=== PATIENT | female | born 1980 | race Caucasian/White ===

== ENCOUNTER 2016-11-22 10:07 | Emergency (ER) | payer SELFPAY ==
[~2016-11-22] VITALS: Ht 162.6 cm; Wt 85.3 kg
[2016-11-22 10:07] VITALS: BP 135/65
[~2016-11-22 10:07] MED LIST: PROAIR RESPICL90 MCG IH; VENTOLIN HFA18 GM INH
--- NOTE | 2016-11-22 10:28 | PHYS DOC ---
Past Medical History Past Medical History: Asthma, Hypertension Past Surgical History: , Other Additional Past Surgical Histo: tongue Alcohol Use: None Drug Use: Marijuana, Methamphetamine Adult General Chief Complaint Chief Complaint: ASTHMA HPI HPI Patient is a 36 year old female who presents with 2 days of worsening shortness of breath and cough. Patient states she started getting upper respiratory symptoms 2 days ago which she attributes to being around sick contacts at work. Patient states that her asthma symptoms started to become rapidly worse over the past 24 hours. Patient states that she has been taking albuterol inhaler at home with minimal relief in symptoms. The patient was administered 2 DuoNeb treatments by EMS prior to arrival which she stated offered mild improvement in symptoms. Patient denies any chest pain, fever, nausea, vomiting, or abdominal pain currently. Review of Systems Review of Systems Constitutional: Denies fever or chills [] Eyes: Denies change in visual acuity, redness, or eye pain [] HENT: Denies nasal congestion or sore throat [] Respiratory: Cough, shortness of breath [] Cardiovascular: Denies chest pain or edema [] GI: Denies abdominal pain, nausea, vomiting, bloody stools or diarrhea [] : Denies dysuria or hematuria [] Musculoskeletal: Denies back pain or joint pain [] Integument: Denies rash or skin lesions [] Neurologic: Denies headache, focal weakness or sensory changes [] Endocrine: Denies polyuria or polydipsia [] Current Medications Current Medications Current Medications Medications (Trade) Dose Ordered Sig/Hank Start Time Stop Time Status Last Admin Dose Admin Albuterol Sulfate (Ventolin Neb Soln) 5 mg 1X ONCE 11/22/16 10:30 11/22/16 10:31 DC 11/22/16 10:53 5 MG Dexamethasone Sodium Phosphate (Decadron) 12 mg 1X ONCE 11/22/16 10:30 11/22/16 10:31 DC 11/22/16 10:38 12 MG Allergies Allergies Allergies Coded Allergies Type Severity Reaction Last Updated Verified Penicillins Allergy Unknown 10/24/16 Yes Physical Exam Physical Exam Constitutional: Alert, afebrile, appears in mild to moderate respiratory distress. [] HENT: Normocephalic, atraumatic, bilateral external ears normal, oropharynx moist, no oral exudates, nose normal. [] Eyes: PERRLA, EOMI, conjunctiva normal, no discharge. [] Neck: Normal range of motion, no tenderness, supple, no stridor. [] Cardiovascular: Tachycardia, regular rhythm, no murmur [] Lungs & Thorax: Mild accessory muscle usage present, expiratory wheezes bilaterally, prolonged expiratory phase, no rales [] Abdomen: Bowel sounds normal, soft, no tenderness, no masses, no pulsatile masses. [] Skin: Warm, dry, no erythema, no rash. [] Back: No tenderness, no CVA tenderness. [] Extremities: No tenderness, no cyanosis, no clubbing, ROM intact, no edema. [] Neurologic: Alert and oriented X 3, normal motor function, normal sensory function, no focal deficits noted. [] Current Patient Data Vital Signs Vital Signs Date Time Temp Pulse Resp B/P Pulse Ox O2 Delivery O2 Flow Rate FiO2 11/22/16 10:58 94 Room Air 11/22/16 10:07 98.1 109 22 135/65 98.1 Lab Values Laboratory Tests Test 11/22/16 10:45 Influenza Type A Antigen Negative (NEGATIVE) Influenza Type B Antigen Negative (NEGATIVE) EKG EKG Rhythm strip interpreted by me: Heart rate 109, sinus tachycardia, no ectopy [] Radiology/Procedures Radiology/Procedures [facility] [address] [facility] [place], [place] [id number] IMAGING REPORT Signed PATIENT: MITZI BARRY ACCOUNT: [id number] : 1980 LOCATION: ER AGE: 36 SEX: F EXAM STATUS: PRE ER ORD. PHYSICIAN: SAÚL ZELAYA MD REASON: short of breath and cough for 2 days PROCEDURE: CHEST PA & LATERAL Two view chest History:Shortness of breath and cough for 2 days . PA and lateral views of the chest are submitted. Comparison: None Findings: There is no significant infiltrate, pleural effusion, or pneumothorax. The pericardial cardiac silhouette is within normal limits in size. The trachea is in the midline. No acute osseous abnormality is identified. Impression: There is no radiographic evidence of acute cardiopulmonary disease. DICTATED and SIGNED BY: YAAKOV HICKS MD DATE: 11/22/16 1043 CC: SAÚL ZELAYA MD; NON,STAFF ~ [] Course & Med Decision Making Course & Med Decision Making Pertinent Labs and Imaging studies reviewed. (See chart for details) The patient was given 2 additional nebulized treatments of albuterol and IV Decadron in the emergency department. On reevaluation, patient states she feels much better at this time. Patient's lungs have improved air movement and mild wheezing on re-auscultation. The patient appears improved at this time and is appropriate for outpatient treatment. The patient will continue on albuterol, prednisone, and Tessalon Perles for treatment of symptoms. Advise follow-up in 3 -5 days a primary doctor and return to the emergency department for any worsening symptoms. Patient voiced understanding and in agreement with treatment plan. Dragon Disclaimer Dragon Disclaimer This electronic medical record was generated, in whole or in part, using a voice recognition dictation system. Departure Departure Impression: Primary Impression: Asthma exacerbation Disposition: HOME, SELF-CARE Condition: IMPROVED Referrals: NON,STAFF (PCP) Patient Instructions: Asthma, Adult Additional Instructions: A primary doctor in 3-5 days for reevaluation. Return to the emergency department for any worsening symptoms. Scripts Prednisone 10 Mg [id number] Mg PO UD PREDNISONE TAPER #39 TAB Ref 0 Take 3 tablets by mouth twice a day for 3 days, then take 2 tablets by mouth twice a day for 3 days, then take 1 tablet by mouth twice a day for 3 days, then take 1 tablet by mouth daily x 3 days, then stop. Prov:SAÚL ZELAYA MD 11/22/16 Benzonatate (Tessalon Perle)100 Mg [id number] Mg PO TID PRN COUGH #30 CAP Prov:SAÚL ZELAYA MD 11/22/16 Albuterol Sulfate (Ventolin Hfa Inhaler)18 Gm Hfa.aer.ad2 Puff INH Q4HRS PRN WHEEZING #1 INHALER Ref 0 Prov:SAÚL ZELAYA MD 11/22/16 SAÚL ZELAYA MD Nov 22, 2016 10:28
[2016-11-22] MEDS ORDERED: DEXAMETHASONE SOD PHOS 20 MG/5 ML VIAL. IV ONE (10:30)
[2016-11-22] MEDS ORDERED: ALBUTEROL SULFATE 2.5 MG/3 ML NEBU. NEB ONE (10:30)
--- NOTE | 2016-11-22 10:46 | RAD ---
Two view chest History:Shortness of breath and cough for 2 days . PA and lateral views of the chest are submitted. Comparison: None Findings: There is no significant infiltrate, pleural effusion, or pneumothorax. The pericardial cardiac silhouette is within normal limits in size. The trachea is in the midline. No acute osseous abnormality is identified. Impression: There is no radiographic evidence of acute cardiopulmonary disease.
[2016-11-22 11:23] LABS: OBC FLU VALID
[2016-11-22] MEDS ORDERED: VENTOLIN HFA18 GM INH (11:37)
[2016-11-22] MEDS ORDERED: PRED-220 PO (11:37)
[2016-11-22] MEDS ORDERED: BENZ100C PO (11:37)
== END 2016-11-22 11:55 | disposition home or self-care (01) ==
LOC: ER 10:07
DX: J45.901 Unspecified asthma with (acute) exacerbation (principal); I10 Essential (primary) hypertension; F12.10 Cannabis abuse, uncomplicated; F15.10 Other stimulant abuse, uncomplicated; Z88.0 Allergy status to penicillin
CPT/HCPCS: 71020; 87804; 94640; 96374; 99285; J1100

== ENCOUNTER 2016-11-24 09:14 | Emergency (ER) | payer SELFPAY ==
[~2016-11-24 09:14] MED LIST changes: +BENZ100C PO; +PRED-220 PO
--- NOTE | 2016-11-24 09:49 | PHYS DOC ---
Past Medical History Past Medical History: Asthma, Hypertension Past Surgical History: , Other Additional Past Surgical Histo: tongue Alcohol Use: None Drug Use: Marijuana, Methamphetamine Adult General Chief Complaint Chief Complaint: SHORTNESS OF BREATH HPI HPI Patient is a 36 year old female who presents with complaint of shortness of breath. Patient symptoms started 4 days ago. Patient was seen in the emergency department 2 days ago and was treated for asthma exacerbation. Patient was prescribed Ventolin inhaler and prednisone. Patient states that she was unable to fill her prednisone due to no one taking her to the pharmacy to get it filled. Patient is currently at [facility] substance abuse treatment facility. Patient has only been taking Ventolin inhaler to help with symptoms as outpatient. Patient denies any fevers, nausea, vomiting. Patient has had worsening shortness of breath with exertion. Patient brought to the emergency department by EMS. Patient was given 1 DuoNeb treatment in route with mild improvement in symptoms. Review of Systems Review of Systems Constitutional: Denies fever or chills [] Eyes: Denies change in visual acuity, redness, or eye pain [] HENT: Denies nasal congestion or sore throat [] Respiratory: Shortness breath, wheezing [] Cardiovascular: Denies chest pain or edema [] GI: Denies abdominal pain, nausea, vomiting, bloody stools or diarrhea [] : Denies dysuria or hematuria [] Musculoskeletal: Denies back pain or joint pain [] Integument: Denies rash or skin lesions [] Neurologic: Denies headache, focal weakness or sensory changes [] Endocrine: Denies polyuria or polydipsia [] Current Medications Current Medications Current Medications Medications (Trade) Dose Ordered Sig/Hank Start Time Stop Time Status Last Admin Dose Admin Albuterol/ Ipratropium (Duoneb) 6 ml 1X ONCE 11/24/16 10:00 11/24/16 10:01 DC 11/24/16 10:08 6 ML Prednisone (Prednisone) 50 mg 1X ONCE 11/24/16 10:00 11/24/16 10:01 DC 11/24/16 10:32 50 MG Allergies Allergies Allergies Coded Allergies Type Severity Reaction Last Updated Verified Penicillins Allergy Unknown 10/24/16 Yes Physical Exam Physical Exam Constitutional: Alert, afebrile, appears in mild respiratory distress. [] HENT: Normocephalic, atraumatic, bilateral external ears normal, oropharynx moist, no oral exudates, nose normal. [] Eyes: PERRLA, EOMI, conjunctiva normal, no discharge. [] Neck: Normal range of motion, no tenderness, supple, no stridor. [] Cardiovascular: Tachycardia, regular rhythm, no murmur [] Lungs & Thorax: Mildly prolonged expiratory phase, expiratory wheezes bilaterally, no rales [] Abdomen: Bowel sounds normal, soft, no tenderness, no masses, no pulsatile masses. [] Skin: Warm, dry, no erythema, no rash. [] Back: No tenderness, no CVA tenderness. [] Extremities: No tenderness, no cyanosis, no clubbing, ROM intact, no edema. [] Neurologic: Alert and oriented X 3, normal motor function, normal sensory function, no focal deficits noted. [] Current Patient Data Vital Signs Vital Signs Date Time Temp Pulse Resp B/P Pulse Ox O2 Delivery O2 Flow Rate FiO2 11/24/16 10:12 93 Nasal Cannula 11/24/16 09:30 98.1 104 26 110/62 98.1 Lab Values Laboratory Tests Test 11/24/16 09:55 White Blood Count 12.5x10^3/uL (4.0-11.0) H Red Blood Count 4.67x10^6/uL (3.50-5.40) Hemoglobin 13.6g/dL (12.0-15.5) Hematocrit 41.1% (36.0-47.0) Mean Corpuscular Volume 88fL (79-100) Mean Corpuscular Hemoglobin 29pg (25-35) Mean Corpuscular Hemoglobin Concent 33g/dL (31-37) Red Cell Distribution Width 13.1% (11.5-14.5) Platelet Count 224x10^3/uL (140-400) Neutrophils (%) (Auto) 70% (31-73) Lymphocytes (%) (Auto) 18% (24-48) L Monocytes (%) (Auto) 8% (0-9) Eosinophils (%) (Auto) 3% (0-3) Basophils (%) (Auto) 1% (0-3) Neutrophils # (Auto) 8.7x10^3uL (1.8-7.7) H Lymphocytes # (Auto) 2.2x10^3/uL (1.0-4.8) Monocytes # (Auto) 1.1x10^3/uL (0.0-1.1) Eosinophils # (Auto) 0.4x10^3/uL (0.0-0.7) Basophils # (Auto) 0.1x10^3/uL (0.0-0.2) Sodium Level 144mmol/L (136-145) Potassium Level 3.6mmol/L (3.5-5.1) Chloride Level 107mmol/L (98-107) Carbon Dioxide Level 28mmol/L (21-32) Anion Gap 9 (6-14) Blood Urea Nitrogen 16mg/dL (7-20) Creatinine 0.7mg/dL (0.6-1.0) Estimated GFR (Cockcroft-Gault) 95.2 Glucose Level 109mg/dL (70-99) H Calcium Level 8.7mg/dL (8.5-10.1) Laboratory Tests 11/24/16 09:55 Laboratory Tests 11/24/16 09:55 EKG EKG Not performed [] Radiology/Procedures Radiology/Procedures [facility] [address] [place] [address] IMAGING REPORT Signed PATIENT: MITZI BARRY ACCOUNT: [id number] : 1980 LOCATION: ER AGE: 36 SEX: F EXAM STATUS: REG ER ORD. PHYSICIAN: SAÚL ZELAYA MD REASON: shortness of breath PROCEDURE: PORTABLE CHEST 1V INDICATION: shortness of breath COMPARISON: 11/24/2016 FINDINGS: Single view of chest obtained. No focal airspace consolidation. Mediastinal contour is unremarkable. No gross osseous destructive lesion. IMPRESSION: No focal airspace consolidation or edema. DICTATED and SIGNED BY: ARIANNA PEREA MD DATE: 11/24/16 1006 CC: SAÚL ZELAYA MD; NO PCP ~ [] Course & Med Decision Making Course & Med Decision Making Pertinent Labs and Imaging studies reviewed. (See chart for details) Patient was treated with 2 DuoNeb treatments in the emergency department as well as oral prednisone. Patient's symptoms have improved at this time. I consult that Volodymyr Gresham from [employer]. He came to the emergency department and was able to provide the patient with her prescriptions to be able to take at her treatment facility. Patient was discharged with recommendation to comply with medical treatment. Advised return to the emergency department for any worsening symptoms. Patient voiced understanding and agreement with treatment plan. Dragon Disclaimer Dragon Disclaimer This electronic medical record was generated, in whole or in part, using a voice recognition dictation system. Departure Departure Impression: Primary Impression: Asthma exacerbation Disposition: HOME, SELF-CARE Condition: IMPROVED Referrals: NO PCP (PCP) Patient Instructions: Asthma, Adult Additional Instructions: You will need to take the medications prescribed in order to improve your symptoms. Continue on your inhaler and prednisone medications as prescribed at your previous visit. I'll up with primary doctor in 3-4 days. Return to the emergency department for any worsening symptoms. SAÚL ZELAYA MD Nov 24, 2016 09:49
[2016-11-24] MEDS ORDERED: PREDNISONE 10 MG TABLET PO ONE (10:00)
[2016-11-24] MEDS ORDERED: IPRATRPIUM/ALBUTEROL 0.5/2.5MG 3 ML NEBU. NEB ONE (10:00)
--- NOTE | 2016-11-24 10:09 | RAD ---
INDICATION: shortness of breath COMPARISON: 11/24/2016 FINDINGS: Single view of chest obtained. No focal airspace consolidation. Mediastinal contour is unremarkable. No gross osseous destructive lesion. IMPRESSION: No focal airspace consolidation or edema.
[2016-11-24 10:10] LABS: BASO # 0.1 x10^3/uL (0.0-0.2); BASO % 1 % (0-3); EOS % 3 % (0-3); HEMATOCRIT 41.1 % (36.0-47.0); HEMOGLOBIN 13.6 g/dL (12.0-15.5); LYMPH # 2.2 x10^3/uL (1.0-4.8); LYMPH % 18 % (24-48); MEAN CORPUSCULAR HEMOGLOBIN 29 pg (25-35); MEAN CORPUSCULAR HGB CONC 33 g/dL (31-37); MEAN CORPUSCULAR VOLUME 88 fL (79-100); MONO % 8 % (0-9); NEUT % 70 % (31-73); PLATELET COUNT 224 x10^3/uL (140-400); RED BLOOD COUNT 4.67 x10^6/uL (3.50-5.40); RED CELL DISTRIBUTION WIDTH 13.1 % (11.5-14.5); WHITE BLOOD COUNT 12.5 x10^3/uL (4.0-11.0)
[2016-11-24 10:11] LABS: CALCIUM 8.7 mg/dL (8.5-10.1); CREATININE 0.7 mg/dL (0.6-1.0); GFR 95.2; POTASSIUM 3.6 mmol/L (3.5-5.1)
[2016-11-24 12:30] VITALS: BP 112/70
== END 2016-11-24 12:40 | disposition home or self-care (01) ==
LOC: ER 09:14
DX: J45.901 Unspecified asthma with (acute) exacerbation (principal); I10 Essential (primary) hypertension; F12.10 Cannabis abuse, uncomplicated; F15.10 Other stimulant abuse, uncomplicated; Z88.0 Allergy status to penicillin
CPT/HCPCS: 36415; 71010; 80048; 85027; 94250; 94640; 99285; J7512; J7620

== ENCOUNTER 2016-11-27 10:07 | Inpatient (IN) | payer SELFPAY ==
[~2016-11-27] VITALS: Ht 162.6 cm; Wt 90.7 kg
[2016-11-27] MEDS ORDERED: IPRATRPIUM/ALBUTEROL 0.5/2.5MG 3 ML NEBU. NEB ONE (10:45)
[2016-11-27 10:55] LABS: BASO # 0.1 x10^3/uL (0.0-0.2); BASO % 0 % (0-3); EOS % 0 % (0-3); HEMATOCRIT 42.5 % (36.0-47.0); HEMOGLOBIN 14.2 g/dL (12.0-15.5); LYMPH # 1.8 x10^3/uL (1.0-4.8); LYMPH % 9 % (24-48); MEAN CORPUSCULAR HEMOGLOBIN 29 pg (25-35); MEAN CORPUSCULAR HGB CONC 33 g/dL (31-37); MEAN CORPUSCULAR VOLUME 87 fL (79-100); MONO % 6 % (0-9); NEUT % 84 % (31-73); PLATELET COUNT 294 x10^3/uL (140-400); RED BLOOD COUNT 4.88 x10^6/uL (3.50-5.40); WHITE BLOOD COUNT 20.8 x10^3/uL (4.0-11.0)
--- NOTE | 2016-11-27 11:02 | RAD ---
Chest, 2 views, 11/27/2016: History: Shortness of breath, coughing up phlegm, chest pain The heart size and pulmonary vascularity are normal. No pulmonary infiltrates are seen. There is no evidence of pleural fluid. IMPRESSION: No acute cardiopulmonary abnormality is detected.
[2016-11-27 11:07] LABS: CALCIUM 9.5 mg/dL (8.5-10.1); CREATININE 0.7 mg/dL (0.6-1.0); GFR 95.2; POTASSIUM 4.6 mmol/L (3.5-5.1)
[2016-11-27 11:11] LABS: ALBUMIN 3.5 g/dL (3.4-5.0); ALBUMIN/GLOBULIN RATIO 0.9 (1.0-1.7); TOTAL BILIRUBIN 0.3 mg/dL (0.2-1.0); TOTAL PROTEIN 7.3 g/dL (6.4-8.2)
[2016-11-27 11:22] LABS: % EOS 1 % (0-5)
[2016-11-27 11:23] LABS: CKMB INDEX 0.8 % (0-4); CKMB MASS 0.7 ng/mL (0.0-3.6); PLT ESTIMATE ADEQUATE (ADEQUATE)
--- NOTE | 2016-11-27 11:25 | PHYS DOC ---
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 Her cough is occasionally productive. She also has sore throat and nasal congestion. She denies fever, chest pain, nausea, vomiting, diarrhea, or abdominal pain. Today is the patient' s third visit in 1 week for the same problem. She was here on 11/22/15 and . She was prescribed prednisone, Tessalon Perles, and albuterol inhaler. She last used her inhaler at 0900. Upon arrival to the emergency department, her oxygen saturation is 93-94% on room air. She is currently at the [facility] rehab for IV methamphetamine use. Review of Systems Review of Systems Constitutional: Denies fever or chills [] Eyes: Denies change in visual acuity, redness, or eye pain [] HENT: Reports sore throat and nasal congestion. Respiratory: Reports productive cough and shortness of breath. Cardiovascular: No additional information not addressed in HPI [] GI: Denies abdominal pain, nausea, vomiting, bloody stools or diarrhea [] : Denies dysuria or hematuria [] Musculoskeletal: Denies back pain or joint pain [] Integument: Denies rash or skin lesions [] Neurologic: Denies headache, focal weakness or sensory changes [] Endocrine: Denies polyuria or polydipsia [] Current Medications Current Medications Current Medications Medications (Trade) Dose Ordered Sig/Hank Start Time Stop Time Status Last Admin Dose Admin Albuterol/ Ipratropium (Duoneb) 3 ml 1X ONCE 11/27/16 10:45 11/27/16 10:46 DC 11/27/16 11:02 3 ML Allergies Allergies Physical Exam Physical Exam Constitutional: Well developed, well nourished, no acute distress, non-toxic appearance. [] HENT: Normocephalic, atraumatic, bilateral external ears normal, oropharynx moist, no oral exudates, nose normal. Bilateral TMs without erythema or bulging. There is no posterior pharyngeal erythema or tonsillar edema. Bilateral nasal turbinates are swollen and erythematous with purulent drainage. Eyes: PERRLA, EOMI, conjunctiva normal, no discharge. [] Neck: Normal range of motion, no tenderness, supple, no stridor. [] Cardiovascular: Heart rate regular rhythm, no murmur [] Lungs & Thorax: There are diffuse inspiratory and expiratory wheezes throughout all lung kelley. There are no rales or rhonchi. The patient is not in respiratory distress. Abdomen: Bowel sounds normal, soft, no tenderness, no masses, no pulsatile masses. [] Skin: Warm, dry, no erythema, no rash. [] Neurologic: Alert and oriented X 3, normal motor function, normal sensory function, no focal deficits noted. [] Psychologic: Affect normal, judgement normal, mood normal. [] Current Patient Data Vital Signs Vital Signs Date Time Temp Pulse Resp B/P Pulse Ox O2 Delivery O2 Flow Rate FiO2 11/27/16 11:36 90 19 110/55 91 Room Air 11/27/16 10:10 98.0 98.0 Lab Values Laboratory Tests Test 11/27/16 10:45 White Blood Count 20.8x10^3/uL (4.0-11.0) #H Red Blood Count 4.88x10^6/uL (3.50-5.40) Hemoglobin 14.2g/dL (12.0-15.5) Hematocrit 42.5% (36.0-47.0) Mean Corpuscular Volume 87fL (79-100) Mean Corpuscular Hemoglobin 29pg (25-35) Mean Corpuscular Hemoglobin Concent 33g/dL (31-37) Red Cell Distribution Width 13.0% (11.5-14.5) Platelet Count 294x10^3/uL (140-400) Neutrophils (%) (Auto) 84% (31-73) H Lymphocytes (%) (Auto) 9% (24-48) L Monocytes (%) (Auto) 6% (0-9) Eosinophils (%) (Auto) 0% (0-3) Basophils (%) (Auto) 0% (0-3) Neutrophils # (Auto) 17.6x10^3uL (1.8-7.7) H Lymphocytes # (Auto) 1.8x10^3/uL (1.0-4.8) Monocytes # (Auto) 1.3x10^3/uL (0.0-1.1) H Eosinophils # (Auto) 0.0x10^3/uL (0.0-0.7) Basophils # (Auto) 0.1x10^3/uL (0.0-0.2) Segmented Neutrophils % 75% (35-66) H Band Neutrophils % 6% (0-9) Lymphocytes % 13% (24-48) L Monocytes % 5% (0-10) Eosinophils % 1% (0-5) Platelet Estimate Adequate (ADEQUATE) Sodium Level 139mmol/L (136-145) Potassium Level 4.6mmol/L (3.5-5.1) Chloride Level 102mmol/L (98-107) Carbon Dioxide Level 30mmol/L (21-32) Anion Gap 7 (6-14) Blood Urea Nitrogen 14mg/dL (7-20) Creatinine 0.7mg/dL (0.6-1.0) Estimated GFR (Cockcroft-Gault) 95.2 BUN/Creatinine Ratio 20 (6-20) Glucose Level 111mg/dL (70-99) H Calcium Level 9.5mg/dL (8.5-10.1) Total Bilirubin 0.3mg/dL (0.2-1.0) Aspartate Amino Transferase (AST) 12U/L (15-37) L Alanine Aminotransferase (ALT) 21U/L (14-59) Alkaline Phosphatase 86U/L (46-116) Creatine Kinase 88U/L (26-192) Creatine Kinase MB (Mass) 0.7ng/mL (0.0-3.6) Creatine Kinase MB Relative Index 0.8% (0-4) Troponin I Quantitative < 0.017ng/mL (0.000-0.055) AJ-Dyb-V-Type Natriuretic Peptide 12pg/mL (0-124) Total Protein 7.3g/dL (6.4-8.2) Albumin 3.5g/dL (3.4-5.0) Albumin/Globulin Ratio 0.9 (1.0-1.7) L Laboratory Tests 11/27/16 10:45 Laboratory Tests 11/27/16 10:45 EKG EKG EKG at 1052. Heart rate 85 bpm. Normal sinus rhythm without any acute ischemic changes or STEMI, as interpreted by Dr. Smith. Radiology/Procedures Radiology/Procedures REASON: cough, soa PROCEDURE: CHEST PA & LATERAL Chest, 2 views, 11/27/2016: History: Shortness of breath, coughing up phlegm, chest pain The heart size and pulmonary vascularity are normal. No pulmonary infiltrates are seen. There is no evidence of pleural fluid. IMPRESSION: No acute cardiopulmonary abnormality is detected. Course & Med Decision Making Course & Med Decision Making Pertinent Labs and Imaging studies reviewed. (See chart for details) The patient is a 36-year-old female with history of asthma presents for her third visit within the last week for asthma exacerbation. She has been on prednisone, Tessalon Perles, and albuterol inhaler at home without improvement in her symptoms. Her oxygen saturation on room air is 93%. She has diffuse inspiratory and expiratory wheezes on exam without respiratory distress. Chest x -ray does not show any focal pneumonia. Laboratory evaluation reveals significant leukocytosis with white blood cell count of 20,000. Her white count was 12,000 three days ago. She is on steroids, confounding this value. She does not have a nebulizer or oxygen therapy at home. Her breathing improved only slightly after the nebulizer treatment in the emergency department. She is admitted to the hospital for asthma exacerbation, not improved with outpatient treatment. Admission was accepted for the hospitalist service by Dr. Obando. The patient is in agreement with plan for admission. She remained stable while in the emergency department. Dragon Disclaimer Dragon Disclaimer This electronic medical record was generated, in whole or in part, using a voice recognition dictation system. Departure Departure Impression: Primary Impression: Asthma exacerbation Disposition: ADMITTED INPATIENT Admitting Physician: Hermila Obando Condition: STABLE Referrals: NO PCP (PCP) DANIEL ESPINOZA Nov 27, 2016 11:25
[2016-11-27] MEDS ORDERED: methylPREDNISolone SOD SUCC PF 125 MG/2 ML VIAL. IV ONE (12:45)
--- NOTE | 2016-11-27 12:56 | EKG ---
[facility] [address] [place] [address] Test Date: 2016-11-27 Test Time: 10:52:06 Pat Name: MITZI BARRY Department: Room: Gender: F [employer]ach [employer] Tender: : 1980 Requested By: DANIEL ESPINOZA Order Number: [id number] Reading MD: Measurements Intervals [place] Rate: 85 P: 31 UT: 124 QRS: 66 QRSD: 72 T: 52 QT: 334 QTc: 398 Interpretive Statements SINUS RHYTHM NORMAL ECG RI6.01 No previous ECG available for comparison
[2016-11-27] MEDS: IPRATRPIUM/ALBUTEROL 0.5/2.5MG 3 ML NEBU. NEB SCH ×3 (14:59→20:39)
[2016-11-27 16:40] VITALS: BP 109/55
--- NOTE | 2016-11-27 16:43 | PDOC1 ---
History and Physical Date of Admission Date of Admission 11/27/16 Identification/Chief Complaint Chief Complaint sob Problems: Source Source: Chart review, Patient History of Present Illness History of Present Illness HPI HPI Patient is a 36 year old female with history of asthma comes for sob, cough FOR 1 week. 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 She takes only ventolin for asthma, usually 3-4 times a day. She has been coughing with yellow sputum, sob, came to ER a couple of times in the past week , was giving prednisone, not improving. smoker, <1PPD. Past Medical History Past Medical History asthma Past Surgical History Past Surgical History: Social History Smoke: <1 pack per day ALCOHOL: social Drugs: Marijuana, Crystal meth Current Problem List Problem List Problems Medical Problems: (1) Asthma exacerbation Status: Acute Current Medications Current Medications Current Medications Medications (Trade) Dose Ordered Sig/Hank Start Time Stop Time Status Last Admin Dose Admin Albuterol/ Ipratropium (Duoneb) 3 ml RTQID 11/27/16 13:00 11/28/16 12:59 11/27/16 14:59 3 ML Methylprednisolone Sodium Succinate (Solu-Medrol 125mg Vial) 125 mg 1X ONCE 11/27/16 12:45 11/27/16 13:10 DC 11/27/16 13:24 125 MG Allergies Allergies Allergies Coded Allergies Type Severity Reaction Last Updated Verified Penicillins Allergy Unknown 10/24/16 Yes ROS Review of System CONSTITUTIONAL: No fever or chills EYES: No recent changes SKIN: No rash or itching CARDIOVASCULAR: No chest pain, syncope, palpitations, or edema RESPIRATORY: No SOB or cough GASTROINTESTINAL: No nausea, vomiting or abdominal pain NEUROLOGICAL: No headaches or weakness ENDOCRINE: No cold or heat intolerance GENITOURINARY: No urgency or frequency of urination MUSCULOSKELETAL: No back pain or joint pain LYMPHATICS: No enlarged lymph nodes PSYCHIATRIC: No anxiety or depression Physical Exam Physical Exam GEN.: No apparent distress. Alert and oriented. HEENT: Head is normocephalic, atraumatic NECK: Supple. LUNGS: bl moderate wheezing HEART: RRR, S1, S2 present. Peripheral pulses intact ABDOMEN: Soft, nontender. Positive bowel sounds. EXTREMITIES: Without any cyanosis. NEUROLOGIC: Normal speech, normal tone PSYCHIATRIC: Normal affect, normal mood. SKIN: No ulcerations Vitals Vitals Vital Signs Date Time Temp Pulse Resp B/P Pulse Ox O2 Delivery O2 Flow Rate FiO2 11/27/16 16:01 98 109/55 96 Nasal Cannula 2 11/27/16 15:31 20 11/27/16 10:10 98.0 98.0 Labs Labs Laboratory Tests Test 11/27/16 10:45 White Blood Count 20.8x10^3/uL (4.0-11.0) Red Blood Count 4.88x10^6/uL (3.50-5.40) Hemoglobin 14.2g/dL (12.0-15.5) Hematocrit 42.5% (36.0-47.0) Mean Corpuscular Volume 87fL (79-100) Mean Corpuscular Hemoglobin 29pg (25-35) Mean Corpuscular Hemoglobin Concent 33g/dL (31-37) Red Cell Distribution Width 13.0% (11.5-14.5) Platelet Count 294x10^3/uL (140-400) Neutrophils (%) (Auto) 84% (31-73) Lymphocytes (%) (Auto) 9% (24-48) Monocytes (%) (Auto) 6% (0-9) Eosinophils (%) (Auto) 0% (0-3) Basophils (%) (Auto) 0% (0-3) Neutrophils # (Auto) 17.6x10^3uL (1.8-7.7) Lymphocytes # (Auto) 1.8x10^3/uL (1.0-4.8) Monocytes # (Auto) 1.3x10^3/uL (0.0-1.1) Eosinophils # (Auto) 0.0x10^3/uL (0.0-0.7) Basophils # (Auto) 0.1x10^3/uL (0.0-0.2) Segmented Neutrophils % 75% (35-66) Band Neutrophils % 6% (0-9) Lymphocytes % 13% (24-48) Monocytes % 5% (0-10) Eosinophils % 1% (0-5) Platelet Estimate Adequate (ADEQUATE) Sodium Level 139mmol/L (136-145) Potassium Level 4.6mmol/L (3.5-5.1) Chloride Level 102mmol/L (98-107) Carbon Dioxide Level 30mmol/L (21-32) Anion Gap 7 (6-14) Blood Urea Nitrogen 14mg/dL (7-20) Creatinine 0.7mg/dL (0.6-1.0) Estimated GFR (Cockcroft-Gault) 95.2 BUN/Creatinine Ratio 20 (6-20) Glucose Level 111mg/dL (70-99) Calcium Level 9.5mg/dL (8.5-10.1) Total Bilirubin 0.3mg/dL (0.2-1.0) Aspartate Amino Transf (AST/SGOT) 12U/L (15-37) Alanine Aminotransferase (ALT/SGPT) 21U/L (14-59) Alkaline Phosphatase 86U/L (46-116) Creatine Kinase 88U/L (26-192) Creatine Kinase MB (Mass) 0.7ng/mL (0.0-3.6) Creatine Kinase MB Relative Index 0.8% (0-4) Troponin I Quantitative < 0.017ng/mL (0.000-0.055) WZ-Zph-S-Type Natriuretic Peptide 12pg/mL (0-124) Total Protein 7.3g/dL (6.4-8.2) Albumin 3.5g/dL (3.4-5.0) Albumin/Globulin Ratio 0.9 (1.0-1.7) Laboratory Tests Test 11/27/16 10:45 White Blood Count 20.8x10^3/uL (4.0-11.0) Red Blood Count 4.88x10^6/uL (3.50-5.40) Hemoglobin 14.2g/dL (12.0-15.5) Hematocrit 42.5% (36.0-47.0) Mean Corpuscular Volume 87fL (79-100) Mean Corpuscular Hemoglobin 29pg (25-35) Mean Corpuscular Hemoglobin Concent 33g/dL (31-37) Red Cell Distribution Width 13.0% (11.5-14.5) Platelet Count 294x10^3/uL (140-400) Neutrophils (%) (Auto) 84% (31-73) Lymphocytes (%) (Auto) 9% (24-48) Monocytes (%) (Auto) 6% (0-9) Eosinophils (%) (Auto) 0% (0-3) Basophils (%) (Auto) 0% (0-3) Neutrophils # (Auto) 17.6x10^3uL (1.8-7.7) Lymphocytes # (Auto) 1.8x10^3/uL (1.0-4.8) Monocytes # (Auto) 1.3x10^3/uL (0.0-1.1) Eosinophils # (Auto) 0.0x10^3/uL (0.0-0.7) Basophils # (Auto) 0.1x10^3/uL (0.0-0.2) Segmented Neutrophils % 75% (35-66) Band Neutrophils % 6% (0-9) Lymphocytes % 13% (24-48) Monocytes % 5% (0-10) Eosinophils % 1% (0-5) Platelet Estimate Adequate (ADEQUATE) Sodium Level 139mmol/L (136-145) Potassium Level 4.6mmol/L (3.5-5.1) Chloride Level 102mmol/L (98-107) Carbon Dioxide Level 30mmol/L (21-32) Anion Gap 7 (6-14) Blood Urea Nitrogen 14mg/dL (7-20) Creatinine 0.7mg/dL (0.6-1.0) Estimated GFR (Cockcroft-Gault) 95.2 BUN/Creatinine Ratio 20 (6-20) Glucose Level 111mg/dL (70-99) Calcium Level 9.5mg/dL (8.5-10.1) Total Bilirubin 0.3mg/dL (0.2-1.0) Aspartate Amino Transf (AST/SGOT) 12U/L (15-37) Alanine Aminotransferase (ALT/SGPT) 21U/L (14-59) Alkaline Phosphatase 86U/L (46-116) Creatine Kinase 88U/L (26-192) Creatine Kinase MB (Mass) 0.7ng/mL (0.0-3.6) Creatine Kinase MB Relative Index 0.8% (0-4) Troponin I Quantitative < 0.017ng/mL (0.000-0.055) BO-Foq-Q-Type Natriuretic Peptide 12pg/mL (0-124) Total Protein 7.3g/dL (6.4-8.2) Albumin 3.5g/dL (3.4-5.0) Albumin/Globulin Ratio 0.9 (1.0-1.7) VTE Prophylaxis Ordered VTE Prophylaxis Devices: Yes VTE Pharmacological Prophylaxi: Yes Assessment/Plan Assessment/Plan 1. dyspnea, 2/2 asthma exacerbation 2. likely COPD with bronchitis 3. tobaccoism 4. htn 5.drug abuse with marijuana and meth 6. obesity plan: 1. pulm consult 2. solumedrol, duoneb 3. levaquin 4. dvt, gi ppx GABRIELLE ROJAS MD Nov 27, 2016 16:42
[2016-11-27] MEDS ORDERED: ACETAMINOPHEN 325 MG TABLET. PO PRN (16:45)
[2016-11-27] MEDS ORDERED: ALBUTEROL SULFATE 2.5 MG/3 ML NEBU. NEB PRN (16:45)
[2016-11-27] MEDS ORDERED: ONDANSETRON PF 4 MG/2 ML VIAL. IV PRN (16:45)
[2016-11-27] MEDS: ENOXAPARIN 40 MG/0.4 ML DISP.SYRIN. SQ SCH (17:39)
[2016-11-27 19:00] VITALS: BP 121/60
[2016-11-27] MEDS: FAMOTIDINE 20 MG TABLET. PO SCH (20:47)
[2016-11-27] MEDS: BENZONATATE 100 MG CAPSULE. PO PRN (20:47)
[2016-11-27] MEDS: GUAIFENESIN ER 600 MG TABLET.ER PO SCH (20:47)
[2016-11-27] MEDS: methylPREDNISolone SOD SUCC PF 40 MG/ML VIAL. IV SCH (22:56)
[2016-11-27 23:53] VITALS: BP 112/56
[2016-11-28 03:01] VITALS: BP 112/69
[2016-11-28 06:15] LABS: BASO % 0 % (0-3); EOS % 0 % (0-3); HEMATOCRIT 42.6 % (36.0-47.0); HEMOGLOBIN 14.1 g/dL (12.0-15.5); LYMPH # 1.6 x10^3/uL (1.0-4.8); LYMPH % 8 % (24-48); MEAN CORPUSCULAR HEMOGLOBIN 29 pg (25-35); MEAN CORPUSCULAR HGB CONC 33 g/dL (31-37); MEAN CORPUSCULAR VOLUME 89 fL (79-100); MONO % 4 % (0-9); NEUT % 88 % (31-73); PLATELET COUNT 281 x10^3/uL (140-400); RED BLOOD COUNT 4.79 x10^6/uL (3.50-5.40); RED CELL DISTRIBUTION WIDTH 13.2 % (11.5-14.5)
[2016-11-28 06:22] LABS: CALCIUM 9.3 mg/dL (8.5-10.1); CREATININE 0.8 mg/dL (0.6-1.0); GFR 81.6; POTASSIUM 4.6 mmol/L (3.5-5.1)
[2016-11-28] MEDS: methylPREDNISolone SOD SUCC PF 40 MG/ML VIAL. IV SCH ×3 (06:23→20:23)
[2016-11-28] MEDS: IPRATRPIUM/ALBUTEROL 0.5/2.5MG 3 ML NEBU. NEB SCH ×4 (06:56→20:08)
[2016-11-28 07:00] VITALS: BP 116/74
[2016-11-28] MEDS: GUAIFENESIN ER 600 MG TABLET.ER PO SCH ×2 (09:13→20:17)
[2016-11-28 11:00] VITALS: BP 117/72
--- NOTE | 2016-11-28 11:21 | PDOC ---
PROGRESS NOTES Chief Complaint Chief Complaint 1. dyspnea, 2/2 asthma exacerbation 2. likely COPD with bronchitis 3. tobaccoism 4. htn 5.drug abuse with marijuana and meth 6. obesity History of Present Illness History of Present Illness Still wheezy but better Less coughing CXR no PNA PLAN: CPM Would keep 1 more night, if cont to do better then home poornima dw pt Vitals Vitals Vital Signs Date Time Temp Pulse Resp B/P Pulse Ox O2 Delivery O2 Flow Rate FiO2 11/28/16 10:43 Nasal Cannula 2.0 11/28/16 07:00 97.7 92 18 116/74 91 97.7 Physical Exam General: Alert, Oriented X3, Cooperative Heart: Regular rate, Normal S1, Normal S2 Lungs: Wheezing Abdomen: Normal bowel sounds, Soft Extremities: No clubbing, No cyanosis Skin: No rashes, No breakdown Labs LABS Laboratory Tests Test 11/28/16 05:55 White Blood Count 19.0x10^3/uL (4.0-11.0) Red Blood Count 4.79x10^6/uL (3.50-5.40) Hemoglobin 14.1g/dL (12.0-15.5) Hematocrit 42.6% (36.0-47.0) Mean Corpuscular Volume 89fL (79-100) Mean Corpuscular Hemoglobin 29pg (25-35) Mean Corpuscular Hemoglobin Concent 33g/dL (31-37) Red Cell Distribution Width 13.2% (11.5-14.5) Platelet Count 281x10^3/uL (140-400) Neutrophils (%) (Auto) 88% (31-73) Lymphocytes (%) (Auto) 8% (24-48) Monocytes (%) (Auto) 4% (0-9) Eosinophils (%) (Auto) 0% (0-3) Basophils (%) (Auto) 0% (0-3) Neutrophils # (Auto) 16.7x10^3uL (1.8-7.7) Lymphocytes # (Auto) 1.6x10^3/uL (1.0-4.8) Monocytes # (Auto) 0.7x10^3/uL (0.0-1.1) Eosinophils # (Auto) 0.0x10^3/uL (0.0-0.7) Basophils # (Auto) 0.0x10^3/uL (0.0-0.2) Sodium Level 140mmol/L (136-145) Potassium Level 4.6mmol/L (3.5-5.1) Chloride Level 103mmol/L (98-107) Carbon Dioxide Level 28mmol/L (21-32) Anion Gap 9 (6-14) Blood Urea Nitrogen 15mg/dL (7-20) Creatinine 0.8mg/dL (0.6-1.0) Estimated GFR (Cockcroft-Gault) 81.6 Glucose Level 129mg/dL (70-99) Calcium Level 9.3mg/dL (8.5-10.1) Review of Systems Review of Systems no inc in soa, no cp, no abd pain, diarrhea Assessment and Plan Assessmemt and Plan Problems Medical Problems: (1) Asthma exacerbation Status: Acute Problems: Comment Review of Relevant I have reviewed the following items ana (where applicable) has been applied. Labs Laboratory Tests Test 11/27/16 10:45 11/28/16 05:55 White Blood Count 20.8x10^3/uL (4.0-11.0) 19.0x10^3/uL (4.0-11.0) Red Blood Count 4.88x10^6/uL (3.50-5.40) 4.79x10^6/uL (3.50-5.40) Hemoglobin 14.2g/dL (12.0-15.5) 14.1g/dL (12.0-15.5) Hematocrit 42.5% (36.0-47.0) 42.6% (36.0-47.0) Mean Corpuscular Volume 87fL (79-100) 89fL (79-100) Mean Corpuscular Hemoglobin 29pg (25-35) 29pg (25-35) Mean Corpuscular Hemoglobin Concent 33g/dL (31-37) 33g/dL (31-37) Red Cell Distribution Width 13.0% (11.5-14.5) 13.2% (11.5-14.5) Platelet Count 294x10^3/uL (140-400) 281x10^3/uL (140-400) Neutrophils (%) (Auto) 84% (31-73) 88% (31-73) Lymphocytes (%) (Auto) 9% (24-48) 8% (24-48) Monocytes (%) (Auto) 6% (0-9) 4% (0-9) Eosinophils (%) (Auto) 0% (0-3) 0% (0-3) Basophils (%) (Auto) 0% (0-3) 0% (0-3) Neutrophils # (Auto) 17.6x10^3uL (1.8-7.7) 16.7x10^3uL (1.8-7.7) Lymphocytes # (Auto) 1.8x10^3/uL (1.0-4.8) 1.6x10^3/uL (1.0-4.8) Monocytes # (Auto) 1.3x10^3/uL (0.0-1.1) 0.7x10^3/uL (0.0-1.1) Eosinophils # (Auto) 0.0x10^3/uL (0.0-0.7) 0.0x10^3/uL (0.0-0.7) Basophils # (Auto) 0.1x10^3/uL (0.0-0.2) 0.0x10^3/uL (0.0-0.2) Segmented Neutrophils % 75% (35-66) Band Neutrophils % 6% (0-9) Lymphocytes % 13% (24-48) Monocytes % 5% (0-10) Eosinophils % 1% (0-5) Platelet Estimate Adequate (ADEQUATE) Sodium Level 139mmol/L (136-145) 140mmol/L (136-145) Potassium Level 4.6mmol/L (3.5-5.1) 4.6mmol/L (3.5-5.1) Chloride Level 102mmol/L (98-107) 103mmol/L (98-107) Carbon Dioxide Level 30mmol/L (21-32) 28mmol/L (21-32) Anion Gap 7 (6-14) 9 (6-14) Blood Urea Nitrogen 14mg/dL (7-20) 15mg/dL (7-20) Creatinine 0.7mg/dL (0.6-1.0) 0.8mg/dL (0.6-1.0) Estimated GFR (Cockcroft-Gault) 95.2 81.6 BUN/Creatinine Ratio 20 (6-20) Glucose Level 111mg/dL (70-99) 129mg/dL (70-99) Calcium Level 9.5mg/dL (8.5-10.1) 9.3mg/dL (8.5-10.1) Total Bilirubin 0.3mg/dL (0.2-1.0) Aspartate Amino Transf (AST/SGOT) 12U/L (15-37) Alanine Aminotransferase (ALT/SGPT) 21U/L (14-59) Alkaline Phosphatase 86U/L (46-116) Creatine Kinase 88U/L (26-192) Creatine Kinase MB (Mass) 0.7ng/mL (0.0-3.6) Creatine Kinase MB Relative Index 0.8% (0-4) Troponin I Quantitative < 0.017ng/mL (0.000-0.055) AE-Iqs-T-Type Natriuretic Peptide 12pg/mL (0-124) Total Protein 7.3g/dL (6.4-8.2) Albumin 3.5g/dL (3.4-5.0) Albumin/Globulin Ratio 0.9 (1.0-1.7) Laboratory Tests Test 11/28/16 05:55 White Blood Count 19.0x10^3/uL (4.0-11.0) Red Blood Count 4.79x10^6/uL (3.50-5.40) Hemoglobin 14.1g/dL (12.0-15.5) Hematocrit 42.6% (36.0-47.0) Mean Corpuscular Volume 89fL (79-100) Mean Corpuscular Hemoglobin 29pg (25-35) Mean Corpuscular Hemoglobin Concent 33g/dL (31-37) Red Cell Distribution Width 13.2% (11.5-14.5) Platelet Count 281x10^3/uL (140-400) Neutrophils (%) (Auto) 88% (31-73) Lymphocytes (%) (Auto) 8% (24-48) Monocytes (%) (Auto) 4% (0-9) Eosinophils (%) (Auto) 0% (0-3) Basophils (%) (Auto) 0% (0-3) Neutrophils # (Auto) 16.7x10^3uL (1.8-7.7) Lymphocytes # (Auto) 1.6x10^3/uL (1.0-4.8) Monocytes # (Auto) 0.7x10^3/uL (0.0-1.1) Eosinophils # (Auto) 0.0x10^3/uL (0.0-0.7) Basophils # (Auto) 0.0x10^3/uL (0.0-0.2) Sodium Level 140mmol/L (136-145) Potassium Level 4.6mmol/L (3.5-5.1) Chloride Level 103mmol/L (98-107) Carbon Dioxide Level 28mmol/L (21-32) Anion Gap 9 (6-14) Blood Urea Nitrogen 15mg/dL (7-20) Creatinine 0.8mg/dL (0.6-1.0) Estimated GFR (Cockcroft-Gault) 81.6 Glucose Level 129mg/dL (70-99) Calcium Level 9.3mg/dL (8.5-10.1) Medications Current Medications Albuterol/ Ipratropium (Duoneb) 3 ml 1X ONCE NEB Last administered on 11:02; Start 11/27/16 at 10:45; Stop 11/27/16 at 10:46; Status DC Albuterol/ Ipratropium (Duoneb) 3 ml RTQID NEB Last administered on 11/27/16 14:59; Start 11/27/16 at 13:00; Stop 11/27/16 at 16:49; Status DC Methylprednisolone Sodium Succinate (Solu-Medrol 125mg Vial) 125 mg 1X ONCE IV Last administered on 11/27/16 13:24; Start 11/27/16 at 12:45; Stop 11/27/16 at 13:10; Status DC Benzonatate (Tessalon Perle) 100 mg TID PRN PO COUGH Last administered on 20:47; Start 11/27/16 at 16:45 Methylprednisolone Sodium Succinate (Solu-Medrol 40mg Vial) 60 mg Q8HRS IV Last administered on 11/28/16 06:23; Start 11/27/16 at 22:00 Famotidine (Pepcid) 20 mg QHS PO Last administered on 11/27/16 20:47; Start at 21:00 Albuterol/ Ipratropium (Duoneb) 3 ml RTQID NEB Last administered on 11/28/16 10:42; Start 11/27/16 at 20:00 Albuterol Sulfate 2.5 mg 2.5 mg PRN Q4HRS PRN NEB SHORTNESS OF BREATH; Start at 16:45 Levofloxacin/ Dextrose 150 ml @ 100 mls/hr Q24H IV ; Start 11/27/16 at 16:45; Stop 11/27/16 at 16:47; Status DC Levofloxacin/ Dextrose (LEVAQUIN 500mg PREMIX) 100 ml @ 100 mls/hr Q24H IV Last administered on 11/27/16 17:38; Start 11/27/16 at 17:00 Acetaminophen (Tylenol) 650 mg PRN Q6HRS PRN PO MILD PAIN / TEMP Last administered on 11/28/16 09:14; Start 11/27/16 at 16:45 Ondansetron HCl (Zofran) 4 mg PRN Q6HRS PRN IV NAUSEA/VOMITING; Start 11/27/16 at 16:45 Enoxaparin Sodium (Lovenox 40mg Syringe) 40 mg Q24H SQ Last administered on 17:39; Start 11/27/16 at 17:00 Guaifenesin (Mucinex) 600 mg BID PO Last administered on 11/28/16 09:13; Start 11/27/16 at 21:00 Active Scripts Active Prednisone 10 Mg Tablet 10 Mg PO UD Take 3 tablets by mouth twice a day for 3 days, then take 2 tablets by mouth twice a day for 3 days, then take 1 tablet by mouth twice a day for 3 days, then take 1 tablet by mouth daily x 3 days, then stop. Tessalon Perle (Benzonatate) 100 Mg Capsule 100 Mg PO TID PRN Ventolin Hfa Inhaler (Albuterol Sulfate) 18 Gm Hfa.aer.ad 2 Puff INH Q4HRS PRN Ventolin Hfa Inhaler (Albuterol Sulfate) 18 Gm Hfa.aer.ad 2 Puff INH Q4HRS Proair Respiclick (Albuterol Sulfate) 90 Mcg Aer.pow.ba 1 Puff IH PRN Q6HRS PRN Vitals/I & O Vital Sign - Last 24 Hours 11/27/16 11/27/16 11/27/16 11/27/16 11:36 12:01 12:31 13:01 Pulse 90 88 86 84 Resp 19 20 29 B/P 110/55 106/72 100/60 116/68 Pulse Ox 91 93 92 93 O2 Delivery Room Air Nasal Cannula Nasal Cannula Nasal Cannula O2 Flow Rate 2 2 2 11/27/16 11/27/1617 11/27/16 14:01 15:00 15:01 15:31 Pulse 82 78 90 Resp 26 20 20 B/P 120/68 103/56 116/73 Pulse Ox 94 94 92 O2 Delivery Nasal Cannula Nasal Cannula Nasal Cannula Nasal Cannula O2 Flow Rate 2 2.0 2 2 11/27/16 11/27/16 11/27/16 11/27/16 16:01 16:40 16:40 19:00 Temp 98.0 98.6 98.0 98.6 Pulse 98 98 95 Resp 20 18 B/P 109/55 109/55 121/60 Pulse Ox 96 92 O2 Delivery Nasal Cannula Nasal Cannula Nasal Cannula Nasal Cannula O2 Flow Rate 2 2.0 2.0 1.0 11/27/16 11/27/16 11/27/16 11/28/16 20:00 20:41 23:53 03:01 Temp 97.9 98.6 97.9 98.6 Pulse 90 92 Resp 20 20 B/P 112/56 112/69 Pulse Ox 90 92 92 O2 Delivery Nasal Cannula Nasal Cannula Nasal Cannula Room Air O2 Flow Rate 2.0 2.0 2.0 11/28/16 11/28/16 11/28/16 11/28/16 06:57 07:00 08:05 10:43 Temp 97.7 97.7 Pulse 92 Resp 18 B/P 116/74 Pulse Ox 94 91 O2 Delivery Nasal Cannula Nasal Cannula Nasal Cannula Nasal Cannula O2 Flow Rate 2.0 2.0 2.0 2.0 Intake and Output 11/27/16 11/27/16 11/28/16 15:00 23:00 07:00 Intake Total 520 ml Balance 520 ml TERMULO,JULIUS Y MD Nov 28, 2016 11:20
--- NOTE | 2016-11-28 13:32 | PDOC ---
PULMONARY PROGRESS NOTES Vitals Vital Signs Date Time Temp Pulse Resp B/P Pulse Ox O2 Delivery O2 Flow Rate FiO2 11/28/16 11:00 97.7 90 18 117/72 92 Nasal Cannula 2.0 97.7 Lungs: Wheezing Labs Laboratory Tests Test 11/27/16 10:45 11/28/16 05:55 White Blood Count 20.8x10^3/uL (4.0-11.0) 19.0x10^3/uL (4.0-11.0) Red Blood Count 4.88x10^6/uL (3.50-5.40) 4.79x10^6/uL (3.50-5.40) Hemoglobin 14.2g/dL (12.0-15.5) 14.1g/dL (12.0-15.5) Hematocrit 42.5% (36.0-47.0) 42.6% (36.0-47.0) Mean Corpuscular Volume 87fL (79-100) 89fL (79-100) Mean Corpuscular Hemoglobin 29pg (25-35) 29pg (25-35) Mean Corpuscular Hemoglobin Concent 33g/dL (31-37) 33g/dL (31-37) Red Cell Distribution Width 13.0% (11.5-14.5) 13.2% (11.5-14.5) Platelet Count 294x10^3/uL (140-400) 281x10^3/uL (140-400) Neutrophils (%) (Auto) 84% (31-73) 88% (31-73) Lymphocytes (%) (Auto) 9% (24-48) 8% (24-48) Monocytes (%) (Auto) 6% (0-9) 4% (0-9) Eosinophils (%) (Auto) 0% (0-3) 0% (0-3) Basophils (%) (Auto) 0% (0-3) 0% (0-3) Neutrophils # (Auto) 17.6x10^3uL (1.8-7.7) 16.7x10^3uL (1.8-7.7) Lymphocytes # (Auto) 1.8x10^3/uL (1.0-4.8) 1.6x10^3/uL (1.0-4.8) Monocytes # (Auto) 1.3x10^3/uL (0.0-1.1) 0.7x10^3/uL (0.0-1.1) Eosinophils # (Auto) 0.0x10^3/uL (0.0-0.7) 0.0x10^3/uL (0.0-0.7) Basophils # (Auto) 0.1x10^3/uL (0.0-0.2) 0.0x10^3/uL (0.0-0.2) Segmented Neutrophils % 75% (35-66) Band Neutrophils % 6% (0-9) Lymphocytes % 13% (24-48) Monocytes % 5% (0-10) Eosinophils % 1% (0-5) Platelet Estimate Adequate (ADEQUATE) Sodium Level 139mmol/L (136-145) 140mmol/L (136-145) Potassium Level 4.6mmol/L (3.5-5.1) 4.6mmol/L (3.5-5.1) Chloride Level 102mmol/L (98-107) 103mmol/L (98-107) Carbon Dioxide Level 30mmol/L (21-32) 28mmol/L (21-32) Anion Gap 7 (6-14) 9 (6-14) Blood Urea Nitrogen 14mg/dL (7-20) 15mg/dL (7-20) Creatinine 0.7mg/dL (0.6-1.0) 0.8mg/dL (0.6-1.0) Estimated GFR (Cockcroft-Gault) 95.2 81.6 BUN/Creatinine Ratio 20 (6-20) Glucose Level 111mg/dL (70-99) 129mg/dL (70-99) Calcium Level 9.5mg/dL (8.5-10.1) 9.3mg/dL (8.5-10.1) Total Bilirubin 0.3mg/dL (0.2-1.0) Aspartate Amino Transf (AST/SGOT) 12U/L (15-37) Alanine Aminotransferase (ALT/SGPT) 21U/L (14-59) Alkaline Phosphatase 86U/L (46-116) Creatine Kinase 88U/L (26-192) Creatine Kinase MB (Mass) 0.7ng/mL (0.0-3.6) Creatine Kinase MB Relative Index 0.8% (0-4) Troponin I Quantitative < 0.017ng/mL (0.000-0.055) QG-Ccf-Q-Type Natriuretic Peptide 12pg/mL (0-124) Total Protein 7.3g/dL (6.4-8.2) Albumin 3.5g/dL (3.4-5.0) Albumin/Globulin Ratio 0.9 (1.0-1.7) Laboratory Tests Test 11/28/16 05:55 White Blood Count 19.0x10^3/uL (4.0-11.0) Red Blood Count 4.79x10^6/uL (3.50-5.40) Hemoglobin 14.1g/dL (12.0-15.5) Hematocrit 42.6% (36.0-47.0) Mean Corpuscular Volume 89fL (79-100) Mean Corpuscular Hemoglobin 29pg (25-35) Mean Corpuscular Hemoglobin Concent 33g/dL (31-37) Red Cell Distribution Width 13.2% (11.5-14.5) Platelet Count 281x10^3/uL (140-400) Neutrophils (%) (Auto) 88% (31-73) Lymphocytes (%) (Auto) 8% (24-48) Monocytes (%) (Auto) 4% (0-9) Eosinophils (%) (Auto) 0% (0-3) Basophils (%) (Auto) 0% (0-3) Neutrophils # (Auto) 16.7x10^3uL (1.8-7.7) Lymphocytes # (Auto) 1.6x10^3/uL (1.0-4.8) Monocytes # (Auto) 0.7x10^3/uL (0.0-1.1) Eosinophils # (Auto) 0.0x10^3/uL (0.0-0.7) Basophils # (Auto) 0.0x10^3/uL (0.0-0.2) Sodium Level 140mmol/L (136-145) Potassium Level 4.6mmol/L (3.5-5.1) Chloride Level 103mmol/L (98-107) Carbon Dioxide Level 28mmol/L (21-32) Anion Gap 9 (6-14) Blood Urea Nitrogen 15mg/dL (7-20) Creatinine 0.8mg/dL (0.6-1.0) Estimated GFR (Cockcroft-Gault) 81.6 Glucose Level 129mg/dL (70-99) Calcium Level 9.3mg/dL (8.5-10.1) Medications Active Scripts Medications Dose Route/Sig Days Date Category Dose Instructions Prednisone 10 Mg Tablet 10 Mg PO UD 11/22/16 Rx Take 3 tablets by mouth twice a day for 3 days, then take 2 tablets by mouth twice a day for 3 days, then take 1 tablet by mouth twice a day for 3 days, then take 1 tablet by mouth daily x 3 days, then stop. Tessalon Perle (Benzonatate) 100 Mg Capsule 100 Mg PO TID PRN 11/22/16 Rx Ventolin Hfa Inhaler (Albuterol Sulfate) 18 Gm Hfa.aer.ad 2 Puff INH Q4HRS PRN 11/22/16 Rx Ventolin Hfa Inhaler (Albuterol Sulfate) 18 Gm Hfa.aer.ad 2 Puff INH Q4HRS 10/24/16 Rx Proair Respiclick (Albuterol Sulfate) 90 Mcg Aer.pow.ba 1 Puff IH PRN Q6HRS PRN 10/24/16 Rx Impression . Asthma/COPD EXACERBATION AGREE WITH CURRENT RX HOME IN AM ON ORAL MED THANKS WILL S/O ELISE FERNANDEZ MD Nov 28, 2016 13:32
[2016-11-28 15:01] VITALS: BP 118/70
[2016-11-28] MEDS: ENOXAPARIN 40 MG/0.4 ML DISP.SYRIN. SQ SCH (18:24)
[2016-11-28 19:59] VITALS: BP 118/70
[2016-11-28] MEDS: FAMOTIDINE 20 MG TABLET. PO SCH (20:17)
[2016-11-28 23:00] VITALS: BP 117/67
[2016-11-29 03:59] VITALS: BP 115/68
--- NOTE | 2016-11-29 04:09 | CONS ---
DATE OF CONSULTATION: 11/28/2016 ATTENDING PHYSICIAN: Dr. Obando. REASON FOR CONSULTATION: The patient seen in pulmonary consultation at the request of Dr. Obando for asthma exacerbation. HISTORY OF PRESENT ILLNESS: The patient is a 36-year-old with history of asthma driven by allergies. She has had previous allergy testing immunotherapy presented with increasing shortness of breath over the last 2-3 days normally utilizes albuterol at home nebulized twice a day. She is not on maintenance medications. The last time she was admitted was 3 years ago. She was seen in the Emergency Room last week, given prednisone not improving, she continues to smoke. No fever, chills or night sweats. PAST MEDICAL HISTORY: 1. Asthma driven by allergies and tobacco use. 2. Tobacco dependence. PAST SURGICAL HISTORY: . SOCIAL HISTORY: She smokes, occasional use of alcohol. Prior history of crystal meth use and marijuana. REVIEW OF SYSTEMS: As indicated above, otherwise, a 10-point system was reviewed and negative. PHYSICAL EXAMINATION: VITAL SIGNS: Stable. O2 saturation was greater than 92%. HEENT: Eyes, the sclerae were nonicteric. NECK: Jugular venous distention was not elevated. No lymphadenopathy. CHEST: Full expansion. LUNGS: Adequate airway flow, no wheezes. CARDIOVASCULAR: Regular rate and rhythm with S1, S2, no S3. ABDOMEN: Soft, nontender, nondistended. EXTREMITIES: No clubbing, cyanosis or edema. LABORATORY DATA: Reviewed. Chest x-ray was clear. White count was elevated secondary to steroids. IMPRESSION: 1. Acute exacerbation of asthma. 2. Nonspecific acute bronchitis. 3. Tobacco use. PLAN: The patient has greatly improved overnight with IV Solu-Medrol and Levaquin. We will switch over to p.o. meds and discharge in the a.m. Follow up with her PCP. I have instructed the patient on utilizing albuterol on a p.r.n. basis if she requires albuterol more than once on average per day, she may require maintenance steroid inhaler. I do appreciate the privilege in sharing in the patient's care. ELISE FERNANDEZ MD DR: ADI/kamlesh JOB#: [id number] / [id number]
[2016-11-29] MEDS: methylPREDNISolone SOD SUCC PF 40 MG/ML VIAL. IV SCH (06:28)
[2016-11-29] MEDS: BENZONATATE 100 MG CAPSULE. PO PRN (06:28)
[2016-11-29 07:00] VITALS: BP 116/72
[2016-11-29] MEDS: IPRATRPIUM/ALBUTEROL 0.5/2.5MG 3 ML NEBU. NEB SCH ×2 (07:17→11:47)
[2016-11-29 08:10] VITALS: BP 116/72
[2016-11-29] MEDS: GUAIFENESIN ER 600 MG TABLET.ER PO SCH (08:17)
[2016-11-29 11:00] VITALS: BP 113/71
--- NOTE | 2016-11-29 12:36 | PDOC3 ---
Discharge Summary Visit Information Date of Admission: Nov 27, 2016 Date of Discharge: Nov 29, 2016 Admitting Diagnosis Comment: 1. dyspnea, 2/2 asthma exacerbation 2. likely COPD with bronchitis 3. tobaccoism 4. htn 5.drug abuse with marijuana and meth 6. obesity Final Diagnosis Problems Medical Problems: (1) Asthma exacerbation Status: Acute Brief Hospital Course Allergies Allergies Coded Allergies Type Severity Reaction Last Updated Verified Penicillins Allergy Intermediate 11/28/16 Yes Vital Signs Vital Signs Date Time Temp Pulse Resp B/P Pulse Ox O2 Delivery O2 Flow Rate FiO2 11/29/16 11:00 97.8 86 20 113/71 89 Nasal Cannula 2.0 97.8 Lab Results Laboratory Tests Test 11/28/16 05:55 White Blood Count 19.0x10^3/uL (4.0-11.0) Red Blood Count 4.79x10^6/uL (3.50-5.40) Hemoglobin 14.1g/dL (12.0-15.5) Hematocrit 42.6% (36.0-47.0) Mean Corpuscular Volume 89fL (79-100) Mean Corpuscular Hemoglobin 29pg (25-35) Mean Corpuscular Hemoglobin Concent 33g/dL (31-37) Red Cell Distribution Width 13.2% (11.5-14.5) Platelet Count 281x10^3/uL (140-400) Neutrophils (%) (Auto) 88% (31-73) Lymphocytes (%) (Auto) 8% (24-48) Monocytes (%) (Auto) 4% (0-9) Eosinophils (%) (Auto) 0% (0-3) Basophils (%) (Auto) 0% (0-3) Neutrophils # (Auto) 16.7x10^3uL (1.8-7.7) Lymphocytes # (Auto) 1.6x10^3/uL (1.0-4.8) Monocytes # (Auto) 0.7x10^3/uL (0.0-1.1) Eosinophils # (Auto) 0.0x10^3/uL (0.0-0.7) Basophils # (Auto) 0.0x10^3/uL (0.0-0.2) Sodium Level 140mmol/L (136-145) Potassium Level 4.6mmol/L (3.5-5.1) Chloride Level 103mmol/L (98-107) Carbon Dioxide Level 28mmol/L (21-32) Anion Gap 9 (6-14) Blood Urea Nitrogen 15mg/dL (7-20) Creatinine 0.8mg/dL (0.6-1.0) Estimated GFR (Cockcroft-Gault) 81.6 Glucose Level 129mg/dL (70-99) Calcium Level 9.3mg/dL (8.5-10.1) Brief Hospital Course Ms. Kong is a 36 old female with asthma, admitted for exacerbation - pls refer to HPI for details. Treated with pulmo on board. Unremarkabel course, Will go home with medrol dose pack, Advised against smoking, Smells of cigs in room Pt seen and examined Consults: pulmo Proc None Dispo; home Discharge Information Condition at Discharge: Improved, Stable Disposition/Orders: D/C to Home Scheduled Albuterol Sulfate (Ventolin Hfa Inhaler) 2 PUFF INH Q4HRS Prednisone (Prednisone) 10 MG PO UD Scheduled PRN Albuterol Sulfate (Proair Respiclick) 1 PUFF IH PRN Q6HRS PRN PRN SHORTNESS OF BREATH Albuterol Sulfate (Ventolin Hfa Inhaler) 2 PUFF INH Q4HRS PRN PRN WHEEZING Benzonatate (Tessalon Perle) 100 MG PO TID PRN PRN COUGH JULIUS CUNNINGHAM MD Nov 29, 2016 12:35
== END 2016-11-29 14:15 | disposition home or self-care (01) | DRG 191 ==
LOC: ER 10:07 → ED HOLD 11:51 → 5 SOUTH 15:32
PROVIDERS: ADMIT Internal Medicine; ATTEND Internal Medicine
DX: J44.0 Chronic obstructive pulmonary disease with (acute) lower respiratory infection (principal); J45.901 Unspecified asthma with (acute) exacerbation; E66.9 Obesity, unspecified; F12.10 Cannabis abuse, uncomplicated; J20.9 Acute bronchitis, unspecified; F15.90 Other stimulant use, unspecified, uncomplicated; F17.200 Nicotine dependence, unspecified, uncomplicated; F19.10 Other psychoactive substance abuse, uncomplicated; I10 Essential (primary) hypertension; Z88.0 Allergy status to penicillin; Z79.899 Other long term (current) drug therapy; Z68.34 Body mass index [BMI] 34.0-34.9, adult
CPT/HCPCS: 36415; 71020; 80048; 80053; 82553; 83880; 84484; 85007; 85027; 93005; 94250; 94640; 94760; 96374; 99406; J1650; J1956; J2920; J2930; J7620; 99285-25

== ENCOUNTER 2016-12-10 16:17 | Emergency (ER) | payer SELFPAY ==
[~2016-12-10] VITALS: Ht 162.6 cm; Wt 90.7 kg
[2016-12-10 16:32] VITALS: BP 121/68
--- NOTE | 2016-12-10 16:43 | PHYS DOC ---
Past Medical History Past Medical History: Asthma, Hypertension Past Surgical History: , Other Additional Past Surgical Histo: tongue Alcohol Use: None Drug Use: Marijuana, Methamphetamine Adult General Chief Complaint Chief Complaint: FLU SYMPTOM HPI HPI Patient is a 36 year old female presents to the emergency department for cough , congestion, SOA and fever. Patient was released from in patient treatment approximately 1 week ago. Patient states she completed the prednisone 3 days ago. She states she has had a fever to 101.9 She has been taking tylenol and ibuprofen. She has been using her ventolin at home, last used 1 hour prior to arrival. Patient also states she a painful tongue in which she has white areas on the tongue with sores on the back of the tongue. Patient is currently living at the [facility]hab for IV methamphetamine users. Review of Systems Review of Systems Constitutional: Denies fever or chills [] Eyes: Denies change in visual acuity, redness, or eye pain [] HENT: nasal congestion denies sore throat [] Respiratory: cough and shortness of breath [] Cardiovascular: No additional information not addressed in HPI [] GI: Denies abdominal pain, nausea, vomiting, bloody stools or diarrhea [] : Denies dysuria or hematuria [] Musculoskeletal: Denies back pain or joint pain [] Integument: Denies rash or skin lesions [] Neurologic: Denies headache, focal weakness or sensory changes [] Current Medications Current Medications Current Medications Medications (Trade) Dose Ordered Sig/Hank Start Time Stop Time Status Last Admin Dose Admin Albuterol Sulfate (Ventolin Neb Soln) 2.5 mg 1X ONCE 12/10/16 17:30 12/10/16 17:31 DC 12/10/16 17:27 2.5 MG Albuterol/ Ipratropium (Duoneb) 3 ml 1X ONCE 12/10/16 16:45 12/10/16 16:46 DC 12/10/16 16:48 3 ML Methylprednisolone Sodium Succinate (Solu-Medrol 125mg Vial) 125 mg 1X ONCE 12/10/16 17:30 12/10/16 17:31 DC Allergies Allergies Allergies Coded Allergies Type Severity Reaction Last Updated Verified Penicillins Allergy Intermediate 11/28/16 Yes Physical Exam Physical Exam Constitutional: Well developed, well nourished, no acute distress, non-toxic appearance. [] HENT: Normocephalic, atraumatic, bilateral external ears normal, oropharynx moist, no oral exudates, nose normal. Bilateral TM normal with throat without erythema. Tongue appears to have white coating on the front part of tongue with red sores on the back of the tongue Eyes: PERRLA, EOMI, conjunctiva normal, no discharge. [] Neck: Normal range of motion, no tenderness, supple, no stridor. [] Cardiovascular:Heart rate regular rhythm, no murmur [] Lungs & Thorax: Bilateral breath sounds with wheezes noted throughout bilateral lungs. Skin: Warm, dry, no erythema, no rash. [] Back: No tenderness Extremities: No tenderness, no cyanosis, no clubbing, ROM intact, no edema. [] Neurologic: Alert and oriented X 3, normal motor function, normal sensory function, no focal deficits noted. [] Psychologic: Affect normal, judgement normal, mood normal. [] Current Patient Data Vital Signs Vital Signs Date Time Temp Pulse Resp B/P Pulse Ox O2 Delivery O2 Flow Rate FiO2 12/10/16 17:28 95 Room Air 12/10/16 16:32 98.2 89 20 98.2 Lab Values Laboratory Tests Test 12/10/16 16:30 Influenza Type A Antigen Positive (NEGATIVE) Influenza Type B Antigen Negative (NEGATIVE) EKG EKG [] Radiology/Procedures Radiology/Procedures [] Course & Med Decision Making Course & Med Decision Making Pertinent Labs and Imaging studies reviewed. (See chart for details) 1705 Patient was provided with respiratory treatment with BS with minimal wheezes throughout. Patient states she is able to breath better. CXR negative per Dr Smith 174 Second respiratory treatment was completed. Patient BS are clear at this time. She was provided with discharge instructions, treatment regimen and followup recommendations. Attempted to contact outreach and education social worker for patient to get assistance with medications with no response noted. Patient was provided with good rx card to obtain medications. Patient was provided with signs and symptoms to return to emergency department. Patient agrees with discharge instructions treatment regimen and followup recommendations. [] Dragon Disclaimer Dragon Disclaimer This electronic medical record was generated, in whole or in part, using a voice recognition dictation system. Departure Departure Impression: Primary Impression: Asthma exacerbation Disposition: HOME, SELF-CARE Condition: STABLE Referrals: NO PCP (PCP) Patient Instructions: Asthma, Adult, [id number] Additional Instructions: Chest x-ray was negative for any abnormalities. Your influenza swab was positive for influenza A. Activity as tolerated Medication as prescribed Do not use your albuterol inhaler any more frequently than 4 hours as prescribed Tylenol or Ibuprofen for fever, chills or generalized body aches You need to get the advair filled that you have the prescription Drink plenty of fluids such as water, gatorade, or propel Stop smoking this will help with your asthma Followup with primary care provider in 3-5 days Return to emergency department as needed for signs and symptoms that become worse. Scripts Prednisone 20 Mg Tnedop94 Mg PO DAILY #14 TAB Prov:FERNANDO PARRA NP 12/10/16 Albuterol Sulfate (Ventolin Hfa Inhaler)18 Gm Hfa.aer.ad2 Puff INH Q4HRS PRN SHORTNESS OF BREATH #1 INHALER Ref 0 Prov:FERNANDO PARRA NP 12/10/16 Oseltamivir Phosphate (Tamiflu)75 Mg Capsule1 Cap PO BID #10 CAP Prov:FERNANDO PARRA NP 12/10/16 FERNANDO PARRA NP Dec 10, 2016 16:43
[2016-12-10] MEDS ORDERED: IPRATRPIUM/ALBUTEROL 0.5/2.5MG 3 ML NEBU. NEB ONE (16:45)
[2016-12-10 17:22] LABS: OBC FLU VALID
[2016-12-10] MEDS ORDERED: OSEL75CA PO (17:29)
[2016-12-10] MEDS ORDERED: PRED20TA PO (17:29)
[2016-12-10] MEDS ORDERED: VENTOLIN HFA18 GM INH (17:29)
[2016-12-10] MEDS ORDERED: methylPREDNISolone SOD SUCC PF 125 MG/2 ML VIAL. IM ONE (17:30)
[2016-12-10] MEDS ORDERED: ALBUTEROL SULFATE 2.5 MG/3 ML NEBU. NEB ONE (17:30)
--- NOTE | 2016-12-11 07:42 | RAD ---
Exam performed: 2 views of the chest. Indication: cough, congestion, SOA Date of Service:12/10/2016 6:43 PM . Comparison : 11/27/16 Findings: PA and lateral radiographs of the chest reveal a normal cardiomediastinal contour. The lungs are clear. No pleural fluid is seen. The visualized osseous structures are unremarkable. Impression: Radiographically normal chest.
== END 2016-12-10 18:10 | disposition home or self-care (01) ==
LOC: ER 16:17
DX: J45.901 Unspecified asthma with (acute) exacerbation (principal); J09.X2 Influenza due to identified novel influenza A virus with other respiratory manifestations; I10 Essential (primary) hypertension; F12.10 Cannabis abuse, uncomplicated; F15.10 Other stimulant abuse, uncomplicated; Z88.0 Allergy status to penicillin
CPT/HCPCS: 71020; 87804; 94250; 94640; 96372; 99285; J2930; J7620